=== PATIENT | female | born 2005 | race African-American/Black ===

== ENCOUNTER 2024-02-21 19:59 | Emergency (ER) | payer OTHER, SELFPAY ==
[2024-02-21 20:01] VITALS: BP 156/102
[2024-02-21 20:13] VITALS: BP 129/87
--- NOTE | 2024-02-21 20:16 | ED.GENMED ---
History of Present Illness
General
Chief Complaint: Allergic Reaction
Source: patient
Exam Limitations: none
Time Seen by Provider: 02/21/24 20:09
History of Present Illness
History of Present Illness:
See MDM
Past History
Past History
ED Past Medical History: Asthma (Slight)
ED Past Surgical History: Other (brain shunt with recent change)
Social History
Tobacco: Non-smoker
Alcohol: None
Personal: Single
Living: with family
Phy Exam
Physical Exam
Physical Exam:
See MDM
Course
Orders/Labs/Results
Orders:
Orders
02/21/24 20:06
Dexamethasone Sod Phosphate [Decadron] 20 mg .ROUTE .STK-MED ONE
Diphenhydramine [Benadryl] 50 mg .ROUTE .STK-MED ONE
EPINEPHrine PF [Adrenalin] 1 mg .ROUTE .STK-MED ONE
Famotidine [Pepcid] 20 mg .ROUTE .STK-MED ONE
02/21/24 20:13
0.9% Sodium Chloride 1000 ml [Nss] 1,000 ml IV BOLUS
Dexamethasone Sod Phosphate [Decadron] 10 mg IV NOW STA
Diphenhydramine [Benadryl] 25 mg IV NOW STA
Famotidine [Pepcid] 20 mg IV NOW STA
Vital Signs
Initial and Last Documented VS:
Initial Vital Signs
Temp Pulse Resp BP Pulse Ox
97.7 F 102 22 156/102 100
02/21/24 20:01 02/21/24 20:01 02/21/24 20:01 02/21/24 20:01 02/21/24 20:01
Last Documented Vital Signs
Temp Pulse Resp BP Pulse Ox
97.7 F 102 22 156/102 100
02/21/24 20:01 02/21/24 20:01 02/21/24 20:01 02/21/24 20:01 02/21/24 20:01
MDM/Problems Addressed
Differential Diagnosis Includes:
HPI and MDM Narrative:
18-year-old female presenting with allergic reaction. Patient was walking to the grass and she developed sudden onset of swelling to both eyes. She is allergic to ragweed. She took p.o. Benadryl. She was scared to take her EpiPen. On arrival,
both eyes are swollen shut. She denies trouble breathing, rash or vomiting
IV was placed. Will give IV Decadron, IV Pepcid and IV Benadryl
Physical exam
General: Tearful uncomfortable
HEENT: protecting airway. Significant swelling to both orbits. No erythema. Posterior pharynx clear
Neck: No stridor, supple
CV: No evidence of cyanosis
Resp: No accessory muscle use. Lungs clear
Abd: Non-distended
Extremities: No deformities
Neuro: alert
Psych: Normal affect
Skin: Intact
Problems Addressed including Acute and Chronic Conditions affecting care:
1. Allergic reaction
Acuity: acute
Prognosis: stable
Details: Allergy appears to be localized to both eyes. Will give IV Decadron, IV Benadryl and IV Pepcid. Eyes placed to both eyes
Updates
9:15 PM patient feeling much better and able to advise. She feels comfortable going home
Differential Diagnosis (but not limited to): Allergic reaction, anaphylaxis
Testing considered: Blood work
Drug therapy (if applicable): OTC meds, please see d/c instruction regarding Rx drugs
Amount and/or Complexity of Data Reviewed
Clinical info obtained from: Patient
External data reviewed: N/A
Labs I independently reviewed (but not limited to): N/A
Radiology: N/A
Pulse Ox: not hypoxic
EKG independently reviewed: N/A
Integrated Pest Management Technician: N/A
Critical Care: N/A
Risk of Complication:
Social Determinants of health: Good social support
Discussed with other providers: N/A
Escalation of Care includes Admit/Obs: After being observed in the Emergency Department, pt stable for discharge.
Occasional wrong word or 'sound a like' substitutions may have occurred due to the inherent limitations of voice recognition software. Read the chart carefully and recognize, using context, where substitutions have occurred.
*Critical Care Note
Total Time (30-74mins, 75-104mins- exclusive of procedures): Not Applicable
ED Attending Note
-
Portions of this chart may have been created with voice recognition software.� Occasional wrong word or��sound alike� substitutions may have occurred due to the inherent limitations of voice recognition software.
Discharge Plan
Departure
Patient Disposition: Home (Routine Discharge)
Date of Disposition: 02/21/24
Time of Disposition: 21:21
Patient with high blood pressure during this ER visit?: Yes
Discharge Problem:
Allergic reaction
Instructions: BLOOD PRESSURE
Prescriptions:
New
prednisone 20 mg tablet
40 mg PO DAILY Qty: 10 0RF
famotidine [Pepcid] 20 mg tablet
20 mg PO BID Qty: 10 0RF
Referrals:
UNKNOWN - PT DOES,NOT KNOW [Family Provider] -
Stand Alone Forms: Return to Work
Activity Restrictions/Additional Instructions:
Please return for any worsening symptoms.
You may return at any time if you have further concerns.
Please follow up with your doctor at the first available appointment, preferably this week.
Thank you for choosing [facility].
Interventions
Interventions:
*Risk Screen - Suicide Last Done: 02/21/24 20:01
*Neglect/Abuse Screening Last Done: 02/21/24 20:01
Discharge Date and Time
Print Language: EMIRATI
[2024-02-21] MEDS: NSS 1000 IV (20:17)
[2024-02-21] MEDS: PEPCID 20 MG IV (20:18)
[2024-02-21] MEDS: DECADRON 10 MG IV (20:18)
[2024-02-21] MEDS: BENADRYL 25 MG IV (20:18)
[2024-02-21 21:00] VITALS: BP 113/70
== END 2024-02-21 21:41 | disposition home or self-care (01) ==
LOC: EMR 19:59
PROVIDERS: EMERGENCY PHYSICIAN Student in an Organized Health Care Education/Training Program
DX: T78.40XA Allergy, unspecified, initial encounter (principal); R22.0 Localized swelling, mass and lump, head; R03.0 Elevated blood-pressure reading, without diagnosis of hypertension; J45.909 Unspecified asthma, uncomplicated; Z91.018 Allergy to other foods; Z91.010 Allergy to peanuts; Z88.0 Allergy status to penicillin; Z91.048 Other nonmedicinal substance allergy status
CPT/HCPCS: 99284; 96374; 96375 ×2; 96361